=== PATIENT | male | born 1995 | race Caucasian/White ===

== ENCOUNTER 2021-11-08 15:47 | Emergency (ER) | payer MEDICAID, OTHER, SELFPAY ==
--- NOTE | ~2021-11-08 | CT_ITS ---
Indication: Trauma EXAMINATION: CT brain, CT cervical spine. Axial imaging with coronal and sagittal reformatted images. This CT examination was performed using dose optimization techniques as appropriate, variously including the following: *Automated exposure control *Adjustment of mA and/or kV according to patient size (this includes techniques or standardized protocols for targeted exams where dose is matched to indication/reason for exam; i.e. extremities or head) *Use of iterative reconstruction technique. Radiation dose 1113. CT brain; There is no midline shift. There is no mass effect. There is no hemorrhage. The basal cisterns appear patent. The posterior fossa is grossly within normal limits. There is no extra-axial collection. The rogers-white matter appears preserved. No fracture is seen on the bone windows. Sinus disease in the left maxillary sinus. Cervical spine; No acute fracture or dislocation. Straightening of the normal lordosis may be due to position or spasm. CT/CT head/brain wo IV con IMPRESSION: Negative acute noncontrast CT of the brain. No acute fracture or dislocation of the cervical spine. Straightening of the normal lordosis may be due to position or spasm.
--- NOTE | ~2021-11-08 | CT_ITS ---
Indication: Trauma EXAMINATION: CT brain, CT cervical spine. Axial imaging with coronal and sagittal reformatted images. This CT examination was performed using dose optimization techniques as appropriate, variously including the following: *Automated exposure control *Adjustment of mA and/or kV according to patient size (this includes techniques or standardized protocols for targeted exams where dose is matched to indication/reason for exam; i.e. extremities or head) *Use of iterative reconstruction technique. Radiation dose 1113. CT brain; There is no midline shift. There is no mass effect. There is no hemorrhage. The basal cisterns appear patent. The posterior fossa is grossly within normal limits. There is no extra-axial collection. The rogers-white matter appears preserved. No fracture is seen on the bone windows. Sinus disease in the left maxillary sinus. Cervical spine; No acute fracture or dislocation. Straightening of the normal lordosis may be due to position or spasm. CT/CT cervical spine wo IV con IMPRESSION: Negative acute noncontrast CT of the brain. No acute fracture or dislocation of the cervical spine. Straightening of the normal lordosis may be due to position or spasm.
[2021-11-08 16:11] VITALS: BP 150/46; BP 156/97; PULSE 115; PULSE 91; RESP 16; TEMP 36.6; O2SAT 98; BMI 22.1
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
== END 2021-11-08 19:22 | disposition home or self-care (01) ==
PROVIDERS: Emergency Provider Internal Medicine
DX: S41.112A Laceration without foreign body of left upper arm, initial encounter (principal); M54.2 Cervicalgia; R51.9 Headache, unspecified; V43.52XA Car driver injured in collision with other type car in traffic accident, initial encounter; Y93.9 Activity, unspecified; Y92.410 Unspecified street and highway as the place of occurrence of the external cause; Y99.9 Unspecified external cause status
CPT/HCPCS: 12004; 70450; 72125; 99282; 99283

== ENCOUNTER 2021-11-19 07:13 | Emergency (ER) | payer MEDICAID, OTHER, SELFPAY ==
[2021-11-19 07:45] VITALS: BP 128/100; PULSE 64; RESP 18; TEMP 36.1; O2SAT 97; BMI 25.7
--- NOTE | 2021-11-19 08:10 | ED.RECABL ---
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 Mode of arrival: ambulatory Limitations: no limitations History of Present Illness complaint: suture/staple removal Initial visit (ago): day(s) (11) Initial visit for: laceration Returns today for: staple/stitch removal Symptoms since prior visit: no new symptoms Context: planned re-check Associated symptoms: none Related Data Previous Rx's Medication Instructions Recorded ibuprofen 600 mg tablet 600 mg PO Q6H PRN Pain, Moderate 11/08/21 #30 tabs Allergies Allergy/AdvReac Type Severity Reaction Status Date / Time No Known Allergies Allergy Verified 11/08/21 16:30 Review of Systems Review of Systems: Constitutional : No Fever, No Chills, Cardiovascular : No Chest Pain, No SOB Respiratory : No Dyspnea Gastrointestinal : No abdominal pain Musculoskeletal : No Joint Swelling Skin : No rash, positive healing skin laceration Neuro : No Weakness, No Numbness Psych : No SI/HI PMFSH Past Medical History Attestation statement: The following information was validated with the patient. Medical History No pertinent past medical history Social History Social History (Updated 11/19/21 @ 08:11 by Gertrude Schmitt DO) Patient Tobacco Use Status: Never used Tobacco Advance Directives: No Advance Directives Information Provided: No Physical Exam Vital Signs: Vital Signs: Last Vital Signs Temp 97 F 11/19/21 07:45 Pulse 64 11/19/21 07:45 Resp 18 11/19/21 07:45 BP 128/100 H 11/19/21 07:45 Pulse Ox 97 11/19/21 07:45 O2 Del Method 11/19/21 07:45 BMI result Body Mass Index 25.7 Appearance: Alert. Oriented X3. No acute distress. Eyes: Pupils equal, round and reactive to light. ENT: Pharynx normal. Neck: Normal inspection. CVS: Pulses normal. Respiratory: No respiratory distress. Skin: Skin warm and dry. Normal skin color. Extremities: L elbow area 14 sutures c/d/i no signs of infection redness/warmth/drainage - well approximated Neuro: Oriented X 3. No motor deficit. No sensory deficit. MDM - Recheck/Abnormal Lab/Rx MDM Narrative Medical decision making narrative: here for suture removal no signs of infection patient has no complaints will remove and send home with precautions Procedures Procedure Narrative Procedure Narrative: removed 14 sutures without issue, patient tolerated well scissors and forceps Discharge Plan Discharge Clinical Impression: Encounter for removal of sutures Patient Disposition: Home, Self-Care Instructions: Stitches Removal (ED) Additional Instructions: return to ED for any worsening symptoms or concerns monitor for redness, fevers, swelling, yellow drainage Prescriptions: No Action ibuprofen 600 mg tablet 600 mg PO Q6H PRN (Reason: Pain, Moderate) Qty: 30 0RF
== END 2021-11-19 08:38 | disposition home or self-care (01) ==
PROVIDERS: Emergency Provider Emergency Medicine
DX: Z48.02 Encounter for removal of sutures (principal); S41.112D Laceration without foreign body of left upper arm, subsequent encounter; X58.XXXD Exposure to other specified factors, subsequent encounter
CPT/HCPCS: 99282; 99283

== ENCOUNTER 2025-02-05 12:17 | Emergency (ER) | payer MEDICAID, OTHER, SELFPAY ==
--- NOTE | ~2025-02-05 | XR_ITS ---
EXAMINATION: XR CHEST 2 VIEWS HISTORY: chest pain COMPARISON: There are no prior studies available for comparison. FINDINGS: PA and lateral views of the chest are submitted. A left-sided unipolar pacemaker is noted with its tip in the right ventricle. The lungs are expanded and clear. There is no pleural effusion, pneumothorax, or pulmonary vascular congestion. The heart is normal in size. The bones are intact. XR/XR chest 2V IMPRESSION: Clear lungs. Electronically signed by: Ye Tirado MD 02/05/2025 01:56 PM [facility]
[2025-02-05 13:15] VITALS: BP 143/79; PULSE 82; RESP 16; TEMP 36.6; O2SAT 96; BMI 23.9
--- NOTE | 2025-02-05 13:26 | ECG_ITS ---
Test Reason : chest pain Blood Pressure : */* mmHG Vent. Rate : 83 BPM Atrial Rate : 83 BPM P-R Int : 122 ms QRS Dur : 90 ms QT Int : 342 ms P-R-T Axes : 44 82 47 degrees QTcB Int : 401 ms Normal sinus rhythm Normal ECG No previous ECGs available Referred By: Renny Grimm Electronically Signed By: Bladimir Hobbs
--- NOTE | 2025-02-05 13:34 | ED_ITS ---
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 Device was implanted approximately 4 months ago after an ID that occurred while the patient was in an [facility] in [place] (heart attack on September 24; device placed on September 27). The patient reports the insertion site had been asymptomatic until the past few days, however medical records brought to the ED with the patient indicate patient was complaining of discomfort throughout his time in the [facility] center, was treated regularly with Tylenol. Pain is localized to the device pocket, non-radiating, described as ?discomfort,? and worsens with certain arm movements. No associated fever, nausea, vomiting, shortness of breath, chest pressure, drainage, bleeding, or ICD shocks since placement or since release from [facility] (~1 month ago). Tylenol administered while in [facility] provided relief; patient has not taken any analgesics since returning to [place]. He reports no prior cardiac history before the September ID. reports history of Known hyperlipidemia, currently takes atorvastatin. Denies current use of anticoagulants/antiplatelets (Eliquis, Coumadin, Warfarin, Plavix). Patient does not currently have an established PCP or icer machine operator in [place] and is requesting assistance with follow-up. Related Data Previous Rx's ?Medication ?Instructions ?Recorded ibuprofen 600 mg tablet 600 mg PO Q6H PRN Pain, Mode rate 11/08/21 #30 tabs Allergies Allergy/AdvReac Type Severity Reaction Status Date / Time No Known Allergies Allergy Verified 02/05/25 13:29 Review of Systems 2 Review of Systems: Yes all other systems are reviewed and are negative [facility] Past Medical History Medical History No pertinent past medical history Social History Social History (Updated 11/19/21 @ 08:11 by Gertrude Schmitt DO) Patient Tobacco Use Status: Never used Tobacco Advance Directives: No Advance Directives Information Provided: No Physical Exam ED Vital Signs: Vital Signs - 24 hr 02/05/25 13:15 02/05/25 20:14 02/05/25 21:05 Temperature 98 F 97.9 F 97.9 F Pulse Rate 82 80 80 Respiratory Rate 16 20 20 Blood Pressure 143/79 H 150/101 H 150/101 H Pulse Oximetry 96 98 98 Oxygen Delivery Method Room Air Room Air Room Air BMI result Body Mass Index 23.9 CONSTITUTIONAL: The patient appears non-toxic, well nourished and in no acute distress. Vital signs as documented. HEAD: Atraumatic, normocephalic. EYES: EOMs grossly intact, pupils equal, conjunctiva clear, no exudate. ENT: Nares patent, no discharge. Airway patent, no audible stridor, visible mucosa is pink and moist without noted lesions. NECK: Trachea is midline, no obvious masses or gross abnormalities. CHEST: Symmetric movement, there is a pacemaker noted in the left upper chest with overlying well-appearing healing scar, without overlying erythema, warmth, tenderness, fluctuance, purulent drainage, serous drainage, bloody drainage, dehiscence, or other abnormal finding. Chest has otherwise normal appearance. Discomfort reproduced Conley with pulling against resistance with the upper extremities, no pain with pushing against resistance. LUNGS: LS present and CTAB, no w/r/r. Non-labored work of breathing. CARDIAC: Regular Rhythm, S1/S2 appreciated, no murmurs, rubs or gallops. ABDOMEN: Abdomen soft and non-tender x4 quadrants, no palpable masses or organomegaly. : Deferred. EXTREMITIES: Normal tone, moves all extremities spontaneously without reported pain. No obvious acute injury or deformity noted. NEURO: Alert and oriented x3, CN II-XII appear grossly intact. Cerebellar Functioning grossly intact. No obvious sensory or motor deficits. Speech clear and appropriate. PSYCH: normal affect, appropriate eye contact, fluid speech, with appropriate response to questioning. No reported suicidality or homicidality. SKIN: Warm, dry, color appropriate, normal turgor. No rashes noted. Course Course Course Narrative: RMJamar: 29 year with past medical history of pacemaker or defibrillator placed in [place] couple of months ago presents to ED for chest pain for the past 2-3 days and dizziness from sitting position. Patient denies any fever chills or coughing up blood. 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 Device was implanted approximately 4 months ago after an ID that occurred while the patient was in an [facility] in [place] (heart attack on September 24; device placed on September 27). The patient reports the insertion site had been asymptomatic until the past few days, however medical records brought to the ED with the patient indicate patient was complaining of discomfort throughout his time in the [facility] center, was treated regularly with Tylenol. Pain is localized to the device pocket, non-radiating, described as ?discomfort,? and worsens with certain arm movements. No associated fever, nausea, vomiting, shortness of breath, chest pressure, drainage, bleeding, or ICD shocks since placement or since release from [facility] (~1 month ago). Tylenol administered while in [facility] provided relief; patient has not taken any analgesics since returning to [place]. He reports no prior cardiac history before the September ID. reports history of Known hyperlipidemia, currently takes atorvastatin. Denies current use of anticoagulants/antiplatelets (Eliquis, Coumadin, Warfarin, Plavix). Patient does not currently have an established PCP or icer machine operator in [place] and is requesting assistance with follow-up. On exam patient is well-appearing, in no acute distress, pacemaker insertion site demonstrates no fluctuance, drainage, dehiscence, erythema, tenderness, or other abnormal findings. Patient's discomfort is fully reproduced with pulling against resistance, no discomfort with pushing as resistance. Patient's laboratory evaluation shows no leukocytosis, anemia, electrolyte abnormality, or DEVYN. The patient's LFTs are unremarkable, BNP is normal. Troponin is negative, EKG is nonischemic. The patient's chest x-ray is unremarkable. At this time there does not appear to be any emergent process causing the patient's discomfort and patient will be discharged with anti-inflammatories, and contact information to set up PCP and cardiology services in [place]. Admission/Observation Consideration of admission/observation: Escalation of care including admission/observation considered Lab Data [facility] Lab Attestation statement: I reviewed the patient's lab results. 02/05/25 13:46 02/05/25 13:46 Labs: Lab Results 02/05/25 Range/Units 13:46 WBC 5.7 (4.8-10.8) X10*3/uL RBC 5.18 (4.60-5.80) X10*6/uL Hgb 14.8 (14.0-18.0) g/dl Hct 44.5 (42.0-52.0) % MCV 85.9 (80.0-98.0) fL MCH 28.6 (27.0-33.0) pg MCHC 33.3 (31.0-36.0) g/dl RDW 13.5 (11.0-16.0) % Plt Count 269 (160-400) X10*3/uL MPV 8.8 L (9.4-12.4) fL Immature Gran % (Auto) 0.4 (0.0-0.4) % Neut % (Auto) 58.0 (45-73) % Lymph % (Auto) 28.6 (20-40) % [place] % (Auto) 9.5 (2-11) % Eos % (Auto) 2.6 (0-4) % Baso % (Auto) 0.9 (0-2) % Lymph # (Auto) 1.6 (1.2-4.9) X10*3/uL [place] # (Auto) 0.5 (0.1-1.2) X10*3/uL Eos # (Auto) 0.2 (0.0-0.4) X10*3/uL Baso # (Auto) 0.1 (0.0-0.2) X10*3/uL Abs Immat Gran (auto) 0.02 (0.00-0.03) X10*3/uL Absolute Neuts (auto) 3.3 (2.0-8.3) x10*3/uL Absolute Nucleated RBC 0.000 (0.0-0.012) X10*3/uL Nucleated RBC % (auto) 0.0 (0.0-0.2) /100WBC PT 11.4 (11.2-13.5) SEC INR 0.9 (0.9-1.1) APTT 30.1 (26.7-34.1) SEC Sodium 141 (135-145) mmol/L Potassium 4.3 (3.3-5.1) mmol/L Chloride 105 (96-108) mmol/L Carbon Dioxide 30 H (22-29) mmol/L Anion Gap 10 L (12-20) BUN 13 (9-16) mg/dL Creatinine 0.74 (0.5-1.4) mg/dL Estim Creat Clear Calc 131.7 Estimated GFR > 60 Random Glucose 89 (60-115) mg/dL Calcium 9.8 (8.4-10.2) mg/dL Total Bilirubin 0.3 (0.0-1.0) mg/dL AST 54 H (5-37) U/L ALT 54 H (0-40) U/L Alkaline Phosphatase 58 (39-117) U/L Troponin I High Sens < 2.7 (<3.5-35.0) ng/L NT-Pro-B Natriuret Pep < 15.8 (<300) pg/mL Total Protein 8.0 (6.5-8.0) g/dL Albumin 4.9 (3.5-5.0) g/dL Independent Interpretation I performed an independent interpretation of an: EKG (EKG demonstrates sinus rhythm with a rate of 83, no evidence of acute ischemia, no ST elevation, no ectopy. QTC 401, no old for comparison.) Radiology Impression Discussion of test interpretation with radiology: I have reviewed the radiologist's reading. Radiologist Impression: EXAMINATION: XR CHEST 2 VIEWS HISTORY: chest pain COMPARISON: There are no prior studies available for comparison. FINDINGS: PA and lateral views of the chest are submitted. A left-sided unipolar pacemaker is noted with its tip in the right ventricle. The lungs are expanded and clear. There is no pleural effusion, pneumothorax, or pulmonary vascular congestion. The heart is normal in size. The bones are intact. XR/XR chest 2V IMPRESSION: Clear lungs. Electronically signed by: Ye Tirado MD 02/05/2025 01:56 PM [facility] External Record Review External record reviewed: Outpatient record Prescription Management I considered prescription management with: Pain Medication Discharge Plan Discharge Clinical Impression: Acute chest wall pain Patient Disposition: Home, Self-Care Instructions: Chest Wall Pain (ED) Additional Instructions: Bug?n keiko?m?n?z i?in [place] [facility] [employer]'ni tercih etti?iniz i?in te?ekk?r ederiz. Neyse ki, laboratuvar de?erlendirmeniz, EKG'frank, g???s r?ntgeniniz ve muayeneniz bug?n endi?e verici bir durum g?stermiyor. ?u darell hastaneye jaylene?? veya acil serviste g?zlem alt?nda duarte?z i?in herhangi bir gerek?e bulunmamaktad?r ve sizi evinize taburcu etmek g?venlidir. Ek a?r?lar?n?z i?in gerekti?inde her 4 saatte bir d?n???ml? olarak 600 mg ibuprofen ve 1000 mg Tylenol almal?s?n?z. L?tfen [place] s?v? t?ketin ve yeterince dinlenin. L?tfen yaral? b?lgeyi dinlendirin ve etkilenen b?lgeye her saat ba?? 20 dakika boyunca buz uygulayabilirsiniz. Yeniden de?erlendirme, kardiyolo?a sevk, semptomlar?n?z?n ek y?netimi ve s?rekli ?nleyici keiko?m i?in l?tfen birinci basamak hekiminizle ileti?cherelle ge?in. Birinci basamak hekiminiz yoksa, esther bir birinci basamak hekim belirlemek i?in l?tfen [phone] numaral? telefondan [place] [facility] Grubu'nu aray?n. Esther birinci basamak hekiminizi belirleyene kadar, acil olmayan ihtiya?lar?n?z i?in [phone] numaral? telefondan Acil Olmayan Keiko?m Klini?imizi arayabilirsiniz. Semptomlar?n?zda ?iddetli veya ani bir de?i?iklik, Tylenol veya Ibuprofen ile d?zelmeyen 100.4 derecenin ?zerinde ate?, tekrarlayan kusma veya ba?ka herhangi bir esther veya k?t?le?en semptom veya endi?e durumunda l?tfen acil servise mable d?n?n. Thank you for choosing [facility]'s Emergency Department for your care today. Thankfully your laboratory evaluation, EKG, chest x-ray, and exam today are all reassuring. At this time there is no indication for admission to the hospital or continued ED observation, and it is safe to discharge you home. You should take alternating (staggered) doses of ibuprofen 600mg and Tylenol 1000mg every 4 hours as needed for any additional pain. Please stay well hydrated and get plenty of rest. Please rest the injured area, and you may apply ice to the affected area for 20 minutes every hour. Please follow up with your primary care physician for re-evaluation, referral to a icer machine operator, additional management of your symptoms, and continued preventative care. If you do not have a primary care physician, please call the [facility] at [phone] to establish a new primary care physician. While waiting to establish your new primary care physician, you can call our [facility] at [phone] for non-emergency needs. Please return to the emergency department if you develop a severe or sudden change in your symptoms, a fever over 100.4 that does not improve with Tylenol or Ibuprofen, recurrent vomiting, or any other new or worsening symptoms or concerns. Prescriptions: No Action ibuprofen 600 mg tablet 600 mg PO Q6H PRN (Reason: Pain, Moderate) Qty: 30 0RF Interventions: ED Discharge Assessment Last Done: 02/05/25 21:05 Discharge Date/Time: 02/05/25 21:05 Print Language: Macedonian
[2025-02-05 13:55] LABS: MANUAL DIFF FLAG NO
[2025-02-05 13:57] LABS: Hematocrit 44.5 % (42.0-52.0); Hemoglobin 14.8 g/dl (14.0-18.0); Imm Gran Abs Auto 0.02 X10*3/uL (0.00-0.03); Imm Gran Pct Auto 0.4 % (0.0-0.4); Lymphocytes Absolute Auto 1.6 X10*3/uL (1.2-4.9); Mean Corpuscular HGB Conc 33.3 g/dl (31.0-36.0); Mean Corpuscular Hemoglobin 28.6 pg (27.0-33.0); Mean Corpuscular Volume 85.9 fL (80.0-98.0); NRBC Abs Auto 0.000 X10*3/uL (0.0-0.012); NRBC Pct Auto 0.0 /100WBC (0.0-0.2); Platelet Count 269 X10*3/uL (160-400); Red Blood Count 5.18 X10*6/uL (4.60-5.80); White Blood Count 5.7 X10*3/uL (4.8-10.8)
[2025-02-05 14:07] LABS: INTERNATIONAL NORM RATIO 0.9 (0.9-1.1); Prothrombin Time 11.4 SEC (11.2-13.5)
[2025-02-05 14:10] LABS: Partial Thromboplastin Time 30.1 SEC (26.7-34.1)
[2025-02-05 14:11] LABS: Alanine Aminotransferase 54 U/L (0-40); Albumin Level 4.9 g/dL (3.5-5.0); Alkaline Phosphatase 58 U/L (39-117); Anion Gap 10 (12-20); Aspartate Amino Transferase 54 U/L (5-37); Blood Urea Nitrogen 13 mg/dL (9-16); Calcium 9.8 mg/dL (8.4-10.2); Carbon Dioxide 30 mmol/L (22-29); Chloride 105 mmol/L (96-108); Creatinine Clr Calc Pharmacy 131.7; Estimated Glomerular Filt Rate > 60; Potassium 4.3 mmol/L (3.3-5.1); Sodium 141 mmol/L (135-145); Total Protein 8.0 g/dL (6.5-8.0)
[2025-02-05 14:21] LABS: NT Pro B Type Natriuretic Pept < 15.8 pg/mL (<300); Troponin-I High Sensitivity < 2.7 ng/L (<3.5-35.0)
[2025-02-05 20:14] VITALS: BP 150/101; PULSE 80; RESP 20; TEMP 36.6; O2SAT 98
--- NOTE | 2025-02-05 20:17 | PC.NURSE ---
Arrives from waiting room to ED 18. RACHEL Calles at bedside. Maori video spanish interpreter/translator in use. Patient reports past hx of GA while at a skilled nursing center in [place], pacemaker/defibrillator was placed afterwards in September 2024. Was released about 1 month ago. Lives in [place]. Doesn't have a nearby upholstery cleaner or PCP at this time. Describes chest pain as discomfort and itchiness at the surgical site, doesn't radiate anywhere . Symptoms for a few days . Denies nausea/vomiting. Denies SOB. Denies feeling the pacemaker/defib shocking him or otherwise malfunctioning. Has his medical cards & paperwork with him. Denies taking any blood thinners. Takes meds for high cholesterol. Preferred pharmacy: [facility] in [place], [place]. Patient is alert/oriented, calm/cooperative. Pacemaker site appears to be healing well, no palpable fluid, no drainage or other signs of infection noted. Color WNL. Workup unremarkable. Provider discussed lab/imaging results, evaluation, recommending discharge home. Plan for Rx to be sent to patient's pharmacy with referrals for PCP & upholstery cleaner.
--- OUTSIDE RECORDS SUMMARY | 2025-02-05 20:35 | XMS_ITS ---
[facility] Care Team Organization Name Specialty Phone Email Start Date End Da te [facility] 06/28/2022 10/10/19 24
[2025-02-05 21:05] VITALS: BP 150/101; PULSE 80; RESP 20; TEMP 36.6; O2SAT 98
== END 2025-02-05 21:05 | disposition home or self-care (01) ==
PROVIDERS: Physician Assistant; Emergency Provider Student in an Organized Health Care Education/Training Program
DX: R07.89 Other chest pain (principal); R00.2 Palpitations; Z95.0 Presence of cardiac pacemaker
CPT/HCPCS: 36415; 71046; 80053; 83880; 84484; 85025; 85610; 85730; 93005; 99283; 99284

== ENCOUNTER → 2025-02-05 13:26 | Outpatient (BNV) | payer MEDICAID, SELFPAY | PROVIDERS: Visit Provider Internal Medicine Cardiovascular Disease | DX: R07.9 Chest pain, unspecified (principal) | CPT/HCPCS: 93010 ==

== ENCOUNTER → 2025-02-05 13:26 | Outpatient (BNV) | payer MEDICAID, SELFPAY | PROVIDERS: Visit Provider Radiology Diagnostic Radiology | DX: R07.9 Chest pain, unspecified (principal) | CPT/HCPCS: 71046 ==